=== PATIENT | female | born 1975 | race Caucasian/White ===

== ENCOUNTER 2018-06-20 05:18 | Emergency (ER) | payer OTHER ==
[~2018-06-20] VITALS: Ht 172.7 cm; Wt 106.6 kg
[2018-06-20] MEDS ORDERED: NORCO 5-325 TA1 EACH PO (07:44)
[2018-06-20 07:58] VITALS: BP 134/62
== END 2018-06-20 07:59 | disposition home or self-care (01) ==
LOC: M.ERS 05:18
DX: M25.561 Pain in right knee (principal); W19.XXXA Unspecified fall, initial encounter; Y93.89 Activity, other specified; Y92.89 Other specified places as the place of occurrence of the external cause; Y99.8 Other external cause status